=== PATIENT | female | born 1975 | race African-American/Black ===

== ENCOUNTER 2016-12-19 14:38 | Emergency (ER) | payer OTHER ==
[~2016-12-19] VITALS: Ht 170.2 cm; Wt 56.7 kg
[~2016-12-19 14:38] MED LIST: HALOPERIDOL LACTATE INJ 5 MG/ML VIAL ONE; diphenhydrAMINE HCL 50 MG/ML VIAL ONE
[2016-12-19] MEDS ORDERED: LORAZEPAM INJ 2 MG/ML VIAL ONE ×2 (14:39→15:05)
[2016-12-19] MEDS ORDERED: diphenhydrAMINE HCL 50 MG/ML VIAL IM ONE (15:00)
[2016-12-19] MEDS ORDERED: LORAZEPAM INJ 2 MG/ML VIAL IM ONE ×2 (15:00→15:30)
[2016-12-19 16:11] LABS: BASOPHILS # (AUTO) 0.1 /CMM (0.0-0.2); BASOPHILS % (AUTO) 1.4 % (0.0-2.0); DIFF TOTAL % 100 %; EOSINOPHILS % (AUTO) 0.6 % (0.0-6.0); HEMATOCRIT 33 % (33-45); LYMPHOCYTES # (AUTO) 1.4 /CMM (0.8-4.8); LYMPHOCYTES % (AUTO) 37.7 % (20.0-44.0); MEAN CORPUSCULAR HEMOGLOBIN 24 PG (26.0-33.0); MEAN CORPUSCULAR HGB CONC 31 g/dl (31.0-36.0); MEAN CORPUSCULAR VOLUME 77 fL (82-100); MONOCYTES # (AUTO) 0.4 /CMM (0.1-1.30); MONOCYTES % (AUTO) 11.4 % (2.0-12.0); NEUTROPHILS # (AUTO) 1.8 /CMM (1.8-8.9); NEUTROPHILS % (AUTO) 48.9 % (43.0-81.0); PLATELET COUNT (AUTO) 245 /CMM (150-450); RED BLOOD CELL COUNT(AUTO) 4.26 MIL/uL (4.0-5.2); WHITE BLOOD COUNT (AUTO) 3.7 K/uL (4.3-11.0)
[2016-12-19 16:19] LABS: CALCIUM, SERUM 8.2 mg/dL (8.5-10.1); POTASSIUM 3.6 mmol/L (3.5-5.1)
[2016-12-19 16:24] LABS: ALBUMIN 3.3 g/dL (3.4-5.0); BILIRUBIN,DIRECT 0.1 mg/dL (0.0-0.2); BILIRUBIN,TOTAL 0.2 mg/dL (0.2-1.0); INDIRECT BILIRUBIN 0.1 mg/dL (0.0-1.1); SALICYLATE 3.6 mg/dL (2.8-20.0); TOTAL PROTEIN, SERUM 9.1 g/dL (6.4-8.2)
[2016-12-20 01:02] VITALS: BP 118/71
== END 2016-12-20 00:50 | disposition home or self-care (01) ==
LOC: ER 14:40
DX: F10.129 Alcohol abuse with intoxication, unspecified (principal); D64.9 Anemia, unspecified; F32.9 Major depressive disorder, single episode, unspecified
CPT/HCPCS: 71010; 80048; 80076; 80329; 84703; 85025; 96372 ×3; 99285; A4606; G0480 ×2; J1200; J2060 ×2; G6039-TC; J1630; Z7610

== ENCOUNTER 2018-12-30 15:18 | Inpatient (IN) | payer OTHER ==
[~2018-12-30] VITALS: Ht 172.7 cm; Wt 81.6 kg
[~2018-12-30 15:18] MED LIST changes: +CEFEPIME 1 GM in IV NS 0.9% 50 ML IV ONE; -HALOPERIDOL LACTATE INJ 5 MG/ML VIAL ONE; -diphenhydrAMINE HCL 50 MG/ML VIAL ONE
[2018-12-30 21:00] VITALS: BP 135/81
[2018-12-30] MEDS ORDERED: VANCOMYCIN 0.75 GM in IV NS 0.9% 250 ML IV SCH (21:30)
[2018-12-30] MEDS ORDERED: ZOLPIDEM TARTRATE 5 MG TABLET PO PRN (21:30)
[2018-12-30] MEDS ORDERED: MORPHINE SULFATE INJ 2 MG/ML DISP.SYRIN IV PRN (21:30)
[2018-12-30] MEDS ORDERED: MAG HYDROX/AL HYDROX/SIMETH 30 ML UDC PO PRN (21:30)
[2018-12-30] MEDS ORDERED: ACETAMINOPHEN 325 MG TABLET PO PRN (21:30)
[2018-12-30] MEDS ORDERED: ONDANSETRON HCL/PF 4 MG/2 ML VIAL IVP PRN (21:30)
[2018-12-30] MEDS ORDERED: Z GUARD REMEDY 2 OZ OINT TP PRN (21:30)
[2018-12-30] MEDS ORDERED: CEFEPIME 1 GM in IV D5W 50 ML IV SCH (21:30)
[2018-12-30] MEDS ORDERED: MAGNESIUM HYDROXIDE 30 ML UDC PO PRN (21:30)
[2018-12-30] MEDS ORDERED: HYDROCODONE/APAP 5/325MG 1 EACH TABLET PO PRN (21:30)
[2018-12-30] MEDS ORDERED: IV NS 0.9% 1,000 ML IV PRN (23:00)
[2018-12-30] MEDS ORDERED: VANCOMYCIN 1 GM in IV D5W 250ml IV ONE (23:30)
[2018-12-31] MEDS ORDERED: CEFEPIME 1 GM in IV NS 0.9% 50 ML IV ONE ×2
[2018-12-31] MEDS ORDERED: CEFEPIME 1 GM VIAL ONE (00:18)
[2018-12-31] MEDS ORDERED: VANCOMYCIN 1 GM VIAL ONE (00:32)
[2018-12-31 06:41] LABS: BASOPHILS % (AUTO) 1.4 % (0.0-2.0); HEMATOCRIT 32 % (33-45); HEMOGLOBIN 10.6 g/dL (11.5-14.8); LYMPHOCYTES # (AUTO) 0.9 /CMM (0.8-4.8); LYMPHOCYTES % (AUTO) 36.9 % (20.0-44.0); MEAN CORPUSCULAR HGB CONC 33 g/dl (31.0-36.0); MEAN CORPUSCULAR VOLUME 81 fL (82-100); MONOCYTES # (AUTO) 0.4 /CMM (0.1-1.30); MONOCYTES % (AUTO) 17.4 % (2.0-12.0); NEUTROPHILS # (AUTO) 1.1 /CMM (1.8-8.9); NEUTROPHILS % (AUTO) 41.3 % (43.0-81.0); PLATELET COUNT (AUTO) 243 /CMM (150-450); RED BLOOD CELL COUNT(AUTO) 4.01 MIL/uL (4.0-5.2); WHITE BLOOD COUNT (AUTO) 2.6 K/uL (4.3-11.0)
[2018-12-31 06:58] LABS: CALCIUM, SERUM 8.2 mg/dL (8.5-10.1); CREATININE 0.7 mg/dL (0.6-1.3); MAGNESIUM 1.4 mg/dL (1.8-2.4); PHOSPHORUS 3.7 mg/dL (2.5-4.9)
[2018-12-31 08:00] VITALS: BP 148/105
[2018-12-31] MEDS ORDERED: Magnesium 1GM/D5W 100ML PREMIX 100 ML IV SCH (09:00)
[2018-12-31 09:36] LABS: EOSINOPHILS % (MANUAL) 3 % (0-4); LYMPHOCYTES % (MANUAL) 29 % (16-48); MONOCYTES % (MANUAL) 17 % (0-11.0); NEUTROPHILS % (MANUAL) 51 (42-76)
[2018-12-31] MEDS ORDERED: RISP2TAB5 PO (09:44)
[2018-12-31] MEDS ORDERED: ESCI10TA PO (09:44)
[2018-12-31] MEDS: VANCOMYCIN 1 GM in IV D5W 250 ML IV SCH ×2 (10:16→11:14)
[2018-12-31] MEDS ORDERED: CEFEPIME 2 GM in IV D5W 100 ML IV SCH (13:00)
== END 2018-12-31 13:00 | disposition left against medical advice (07) | DRG 383 ==
LOC: MED 20:16
PROVIDERS: ADMIT Internal Medicine; ATTEND Family Medicine
DX: L03.211 Cellulitis of face (principal); E83.42 Hypomagnesemia; Z59.0 Homelessness; K04.7 Periapical abscess without sinus; D63.8 Anemia in other chronic diseases classified elsewhere
CPT/HCPCS: 36415; 80048-TC; 83735-TC; 84100-TC; 84702-TC; 85025-TC; 87081-TC; A4216; G0378; J0692; J3370; J3475; J7030; J7050; J7060

== ENCOUNTER 2019-06-27 15:30 | Emergency (ER) | payer OTHER ==
[~2019-06-27] VITALS: Ht 172.7 cm; Wt 59.0 kg
[~2019-06-27 15:30] MED LIST changes: -CEFEPIME 1 GM in IV NS 0.9% 50 ML IV ONE; +ESCI10TA PO; +RISP2TAB5 PO
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
--- NOTE | 2019-06-27 15:48 | NUR ---
CHANDA CARREON AT BEDSIDE
[2019-06-27] MEDS ORDERED: CEFTRIAXONE 1 G VIAL ONE (15:55)
[2019-06-27] MEDS ORDERED: IBUPROFEN 600 MG TABLET PO ONE ×2 (15:56→16:00)
[2019-06-27] MEDS ORDERED: TDAP [DIPH/PERTUSSIS/TET] 0.5 ML VIAL IM ONE ×2 (15:56→16:00)
[2019-06-27] MEDS ORDERED: LIDOCAINE /MPF 1% VIAL 5 ML VIAL ONE (15:57)
[2019-06-27] MEDS ORDERED: CEFTRIAXONE 1 G VIAL IM ONE (16:00)
[2019-06-27] MEDS ORDERED: BENZOIN COMPOUND TINCT 60 ML BOTTLE ONE (16:31)
--- NOTE | 2019-06-27 16:40 | NUR ---
SIGNED HOMELESS WAIVER FORM. REFUSED ALL RESOURCES AT THIS TIME
--- NOTE | 2019-06-27 16:47 | NUR ---
Patient given written and verbal discharge instructions. Patient verbalizes understanding of instructions. Patient is ambulatory with steady gait. Refuses offer of [facility] placement. Patient given list of available shelters in surrounding area. Tap card provided. patient in proper clothing upon discharge, name band removed.
[2019-06-27 16:50] VITALS: BP 138/71
[2019-06-27] MEDS ORDERED: BENZOIN COMPOUND TINCT 60 ML BOTTLE MM ONE (17:00)
== END 2019-06-27 17:20 | disposition home or self-care (01) ==
LOC: ER 15:30
DX: S41.112A Laceration without foreign body of left upper arm, initial encounter (principal); F17.200 Nicotine dependence, unspecified, uncomplicated; Z59.0 Homelessness; Z79.899 Other long term (current) drug therapy; W26.8XXA Contact with other sharp object(s), not elsewhere classified, initial encounter; Y93.39 Activity, other involving climbing, rappelling and jumping off; Y92.89 Other specified places as the place of occurrence of the external cause; Y99.8 Other external cause status
CPT/HCPCS: 90471; 90715; 96372; 99283; A6403; J0696; J3490

== ENCOUNTER 2020-11-05 20:38 | Emergency (ER) | payer OTHER ==
[~2020-11-05] VITALS: Ht 175.3 cm; Wt 59.0 kg
[2020-11-05 20:45] VITALS: BP 111/73
== END 2020-11-05 22:55 | disposition home or self-care (01) ==
LOC: ER 20:38
DX: L03.213 Periorbital cellulitis (principal); F17.200 Nicotine dependence, unspecified, uncomplicated; Z79.899 Other long term (current) drug therapy

== ENCOUNTER 2020-11-17 18:26 | Emergency (ER) | payer OTHER ==
[~2020-11-17] VITALS: Ht 172.7 cm; Wt 63.5 kg
[2020-11-17] MEDS ORDERED: diphenhydrAMINE HCL 50 MG/ML VIAL ONE (18:57)
[2020-11-17] MEDS ORDERED: IV NS 0.9% 1,000 ML BAG IV ONE (19:00)
[2020-11-17] MEDS ORDERED: diphenhydrAMINE HCL 50 MG/ML VIAL IV ONE (19:00)
[2020-11-17 19:08] LABS: BASOPHILS % (AUTO) 0.1 % (0.0-2.0); HEMATOCRIT 29 % (33-45); HEMOGLOBIN 9.3 g/dL (11.5-14.8); LYMPHOCYTES # (AUTO) 0.7 /CMM (0.8-4.8); LYMPHOCYTES % (AUTO) 4.7 % (20.0-44.0); MEAN CORPUSCULAR HGB CONC 32 g/dl (31.0-36.0); MEAN CORPUSCULAR VOLUME 86 fL (82-100); MONOCYTES # (AUTO) 0.5 /CMM (0.1-1.30); MONOCYTES % (AUTO) 3.5 % (2.0-12.0); NEUTROPHILS # (AUTO) 14.3 /CMM (1.8-8.9); NEUTROPHILS % (AUTO) 91.7 % (43.0-81.0); PLATELET COUNT (AUTO) 261 /CMM (150-450); RED BLOOD CELL COUNT(AUTO) 3.38 MIL/uL (4.0-5.2); WHITE BLOOD COUNT (AUTO) 15.6 K/uL (4.3-11.0)
[2020-11-17 19:19] LABS: CALCIUM, SERUM 7.7 mg/dL (8.5-10.1); CARBON DIOXIDE 30 mmol/L (21-32); CHLORIDE 97 mmol/L (98-107); CREATININE 1.1 mg/dL (0.6-1.3); GLUCOSE 110 mg/dL (74-106); POTASSIUM 3.1 mmol/L (3.5-5.1); SODIUM SERUM 134 mmol/L (136-145); UREA NITROGEN, BLOOD 15 mg/dL (7-18)
[2020-11-17 19:25] LABS: ALANINE AMINOTRANSFERASE 31 U/L (12-78); ALBUMIN 1.6 g/dL (3.4-5.0); ALKALINE PHOSPHATASE 66 U/L (46-116); ASPARTATE AMINOTRANSFERASE 40 U/L (15-37); BILIRUBIN,DIRECT 0.2 mg/dL (0.0-0.2); BILIRUBIN,TOTAL 0.5 mg/dL (0.2-1.0); TOTAL PROTEIN, SERUM 8.2 g/dL (6.4-8.2)
[2020-11-17] MEDS ORDERED: POTASSIUM CHLORIDE 20 MEQ TAB.PRT.SR PO ONE ×2 (19:30→19:46)
[2020-11-17 19:44] LABS: BILIRUBIN,URINE Negative (NEGATIVE); COLOR,URINE YELLOW (YELLOW); LEUKOCYTE ESTERASE ,URINE Trace (NEGATIVE); NITRITE, URINE Negative (NEGATIVE); PH,URINE 5.5 (5.0-8.0); PROTEIN,URINE 30 mg/dl (NEGATIVE); UGLUCOSE Negative (NEGATIVE); UROBILINOGEN,URINE >=8.0 EU/dL (0.2)
[2020-11-17] MEDS ORDERED: CEFTRIAXONE 1GM BAG (ER ONLY) 50 ML IV ONE (19:51)
[2020-11-17] MEDS ORDERED: AZITHROMYCIN 500 MG in IV D5W 250 ML IV SCH (20:00)
[2020-11-17] MEDS ORDERED: CEFTRIAXONE 1GM BAG (ER ONLY) 1 GM/50 ML PIGGYBACK IV ONE (20:00)
[2020-11-17] MEDS ORDERED: AZITHROMYCIN 500 MG VIAL ONE (20:03)
[2020-11-17 20:04] LABS: BACTERIA,URINE Few /HPF (None Seen); SQUAMOUS EPITHELIAL CELL,UR Few /HPF (None Seen)
[2020-11-17] MEDS ORDERED: DIPH50CA4 PO (20:23)
[2020-11-17] MEDS ORDERED: TRIA80OI TP (20:23)
[2020-11-17] MEDS ORDERED: AZIT250T13 PO (20:23)
[2020-11-17 22:32] VITALS: BP 124/88
== END 2020-11-17 22:32 | disposition home or self-care (01) ==
LOC: ER 18:43
DX: J18.9 Pneumonia, unspecified organism (principal); R04.2 Hemoptysis; E87.6 Hypokalemia; L50.9 Urticaria, unspecified; Z20.822 Contact with and (suspected) exposure to COVID-19; D64.9 Anemia, unspecified; Z91.14 Patient's other noncompliance with medication regimen; Z59.0 Homelessness; Z79.899 Other long term (current) drug therapy; R94.31 Abnormal electrocardiogram [ECG] [EKG]
CPT/HCPCS: 36415; 71045; 80048; 80076; 80307; 81001; 83605; 84484; 85025; 85730; 87040 ×2; 87077; 87186; 87426; 93005; 96361; 96365; 96368; 96375; 99285; C9803; J0456; J0696; J1200; J7030; U0003; J7060

== ENCOUNTER 2023-05-28 22:55 | Emergency (ER) | payer OTHER ==
[~2023-05-28] VITALS: Ht 172.7 cm; Wt 63.5 kg
[~2023-05-28 22:55] MED LIST changes: +AZIT250T13 PO; +DIPH50CA4 PO; +TRIA80OI TP
[2023-05-28 23:20] VITALS: BP 143/68; TEMP 98.1
[2023-05-29] MEDS ORDERED: BACI/NEOM/POLY B OINT PKT 1 UDPKT PACKET TP ONE
[2023-05-29] MEDS ORDERED: CEPH500T PO (00:05)
[2023-05-29] MEDS ORDERED: BACI/NEOM/POLY B OINT PKT 1 UDPKT PACKET ONE (00:14)
[2023-05-29 00:24] VITALS: O2SAT 98
== END 2023-05-29 00:25 | disposition home or self-care (01) ==
LOC: ER 23:02
DX: S90.811A Abrasion, right foot, initial encounter (principal); F17.200 Nicotine dependence, unspecified, uncomplicated; V09.20XA Pedestrian injured in traffic accident involving unspecified motor vehicles, initial encounter; Y93.89 Activity, other specified; Y92.89 Other specified places as the place of occurrence of the external cause; Y99.8 Other external cause status